=== PATIENT | female | born 1985 | race Caucasian/White ===

== ENCOUNTER 2017-04-18 01:45 | Emergency (ER) | payer MEDICAID ==
[2017-04-18] MEDS ORDERED: Albuterol 8 GM Inhaler INH ONE (02:45)
[2017-04-18] MEDS ORDERED: Montelukast 10 MG Tab PO ONE (02:59)
[2017-04-18 03:31] VITALS: BP 118/65
--- NOTE | 2017-04-20 15:34 | ER ---
DATE SEEN: 04/18/2017 HISTORY OF PRESENT ILLNESS: She states her asthma and her breathing improves when she takes her methamphetamine, but when she does not take it, it gets worse. She has smoked for 10 plus years a pack a day. For the last 6 months, she notes she has marked congestion when she comes off her methamphetamine. She is going to schedule to go to rehab within the next 2 weeks. She relapsed 2 days ago "Used methamphetamine because she got more short of breath." She denies fevers, but she has mild right neck discomfort. She uses asthma medicines, is out of those medicines. She complains of 2 days of right jaw, throat, and neck discomfort. She admits she has used methamphetamine, the last time she used methamphetamine was this morning. She denies previous otitis media or PE tube placement. She has 2 children. ALLERGIES: None. MEDICATIONS: None. She has not seen a doctor for many years. REVIEW OF SYSTEMS: Negative. HEENT: Denies headache, neck stiffness, compromised vision. She does not have any runny nose presently or nasal congestion presently, but she says it is difficult for her to breathe. She notes she has whistling in her lungs. CARDIORESPIRATORY: Denies chest pain. She has some wheezing. Denies air hunger, dyspnea on exertion, or orthopnea. ABDOMEN: Denies abdominal discomfort, diarrhea, constipation, blood in the stool, or black tarry stools. : She is 2, para 2-0-0-2. Denies pelvic pain. MUSCULOSKELETAL: Denies muscle aches, myalgia, skin changes, thyroid problems, feeling too hot or too cold. OBJECTIVE EXAMINATION: VITAL SIGNS: Heart rate 104, respirations 18, oxygen saturation 100% on room air, respiratory rate 18, temperature is 36.9 degrees centigrade. HEENT: Pupils, she has fixed dilated pupils, not responsive to light when I turn light on or off or even if I shine light in her eyes, which suggests she also has had methamphetamine use today, which she acknowledged she used this morning. PERRLA intact. Pharynx without abnormality. No nasal congestion. No nasal turbinate swelling. No polyps. She has mild eustachian tube dysfunction in right ear. No fluid demonstrated, but not obscuring the TMs. No cervical adenopathy. NECK: Supple. No pharyngeal erythema. No tonsillar hypertrophy or exudative tonsillitis. LUNGS: Have moderate low pitch wheezing inspiratory and expiratory. HEART: S1 and S2. No murmur. ABDOMEN: Soft. No guarding. No abdominal discomfort. EXTREMITIES: Without abnormality. DERMIS: Negative. Deep tendon reflexes increased, upper and lower extremities. Cranial nerves II through XII intact. Gait intact. No tremor. No paresis. ASSESSMENT: 1. The patient is definitely a drug addict. 2. She has used methamphetamines and that is apparent. The patient has some pupil dilation with pseudo cholinergic effect. 3. Neck pain and ear pain and throat pain. Could have a viral involvement. No evidence for strep. Strep test is negative. 4. Eustachian tube discomfort is causing right ear discomfort. She was taught the Toynbee maneuver and also advised to use Sudafed [id number]. She then can use Tylenol or ibuprofen for neck pain and aches and sore throat. I did not prescribe any medicines or antibiotics. The patient to followup with doctor in a week. The patient was seen at 0210 hours. DIAGNOSES: 1. Methamphetamine abuse. 2. Congestion secondary to methamphetamine use. 3. Mistaken notion that methamphetamine decreases her wheezing. She is a smoker and the wheezing is bad. 4. She has lung disease which mirrors the smoking abuse she has and has inspiratory and expiratory wheezing. 5. Asthma. Plan: Advair Diskus 250/100 one puff each twice a day, also Pulmicort (ICS medicine) inhale one puff b.i.d. 6. Eustachian tube dysfunction secondary to methamphetamine use and probably viremia. 7. Smoking abuse. 8. I told the patient her lungs are older than her age, perhaps 10 years older or more because of the abuse she has experienced, and she has to make a decision if she wants to be an old woman at an early age 47 and carry on the way she is with her methamphetamine use and smoking, or decide to make a decision about changing her habits and smoking. 9. Also additional comment: She has moderate lacrimation and sort of injection in her eyes reflects current use, perhaps even she used methamphetamine earlier this evening before she even came to the ED. /[id number] TIMOTHY/HIEU LLANOS
== END 2017-04-18 03:25 | disposition home or self-care (01) ==
LOC: FB.ED 01:45
DX: M54.2 Cervicalgia (principal); H69.91 Unspecified Eustachian tube disorder, right ear; R07.0 Pain in throat; F15.10 Other stimulant abuse, uncomplicated; J45.909 Unspecified asthma, uncomplicated; F17.200 Nicotine dependence, unspecified, uncomplicated
CPT/HCPCS: 87081; 87430; 99283; A9270

== ENCOUNTER 2018-08-18 13:05 | Emergency (ER) | payer MEDICAID ==
--- NOTE | 2018-08-18 13:19 | EDM.PDOC ---
ED HPI GENERAL MEDICAL PROBLEM - General Stated Complaint: BROUGHT IN Time Seen by Provider: 08/18/18 13:05 Source of Information: Reports: Patient, Police History Limitations: Reports: No Limitations - History of Present Illness INITIAL COMMENTS - FREE TEXT/NARRATIVE: 33 years old w f -smoker-H/O asthma, came to the ed after she was put in custody. Pt stated she took 2 gm of meth. Pt has 2 children, is . On arrival, pt was calm, cooperative. She was coughing up occ greenish sputum. NoN/ V/D or any other acute medical issue. BP 130/71 RR 19 Pulse ox 99% on RA Temp 36.8 Pulse 81 Onset Date: 08/18/18 Onset Time: 10:00 Duration: Hour(s): Location: Reports: Generalized Severity: Mild Improves with: Reports: None Worsens with: Reports: None Context: Reports: Other (amphetamin use) Associated Symptoms: Reports: No Other Symptoms, Other (productive cough) - Related Data Allergies Allergy/AdvReac Type Severity Reaction Status Date / Time No Known Allergies Allergy Verified 08/18/18 15:38 Home Meds: Home Meds Budesonide [Pulmicort Flexhaler] 1 inhalation INH BID PRN #1 inhaler 04/18/17 [ Rx] Fluticasone/Salmeterol [Advair 250-50 Diskus] 1 each IH BID #1 disk.w.dev [Rx] Albuterol [Proventil HFA] 2 puff INH Q4H PRN #1 inhaler 08/18/18 [Rx] Budesonide/Formoterol Fumarate [Symbicort 160-4.5 Mcg Inhaler] 1 puff IH Q4HR # 1 canister 08/18/18 [Rx] Ciprofloxacin HCl [Cipro] 500 mg PO BID #20 tablet 08/18/18 [Rx] Fluconazole [Diflucan] 200 mg PO ONETIME #1 tablet 08/18/18 [Rx] Albuterol [Proventil HFA] 2 puff INH Q4H PRN #1 inhaler 08/20/18 [Rx] Budesonide/Formoterol Fumarate [Symbicort 160-4.5 Mcg Inhaler] 1 puff IH BID PRN #1 canister 08/20/18 [Rx] Ciprofloxacin HCl [Cipro] 500 mg PO BID #20 tablet 08/20/18 [Rx] Fluconazole [Diflucan] 200 mg PO ONETIME #1 tablet 08/20/18 [Rx] Past Medical History Respiratory History: Reports: Asthma Gastrointestinal History: Reports: None Genitourinary History: Reports: None 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: Musculoskeletal History: Reports: Back Pain, Chronic, Other (See Below) Other Musculoskeletal History: djd Psychiatric History: Reports: ADD, Addiction, Anxiety, Depression, Panic Attack , Other (See Below) Other Psychiatric History: borderline personality disorder, self harm Dermatologic History: Reports: Other (See Below) Other Dermatologic History: cystic acne - Infectious Disease History Infectious Disease History: Reports: Chicken Pox - Past Surgical History HEENT Surgical History: Reports: Oral Surgery Respiratory Surgical History: Reports: None GI Surgical History: Reports: Appendectomy Female Surgical History: Reports: Tubal Ligation Social & Family History - Caffeine Use Caffeine Use: Reports: Coffee, Tea ED ROS GENERAL - Review of Systems Review Of Systems: See Below Constitutional: Reports: No Symptoms HEENT: Reports: No Symptoms Respiratory: Reports: Cough, Sputum Cardiovascular: Reports: No Symptoms Endocrine: Reports: No Symptoms GI/Abdominal: Reports: No Symptoms : Reports: No Symptoms Musculoskeletal: Reports: No Symptoms Skin: Reports: No Symptoms Neurological: Reports: No Symptoms Psychiatric: Reports: No Symptoms Hematologic/Lymphatic: Reports: No Symptoms Immunologic: Reports: No Symptoms ED EXAM, GENERAL - Physical Exam Exam: See Below Exam Limited By: No Limitations General Appearance: Alert, WD/WN, Mild Distress Eye Exam: Bilateral Eye: Normal Inspection Ears: Normal External Exam Ear Exam: Bilateral Ear: Auricle Normal Nose: Normal Inspection, Normal Mucosa, No Blood Throat/Mouth: Normal Inspection, Normal Lips, Normal Voice, No Airway Compromise Head: Atraumatic, Normocephalic Neck: Normal Inspection, Supple, Non-Tender, Full Range of Motion Respiratory/Chest: No Respiratory Distress, Rhonchi Cardiovascular: Normal Peripheral Pulses, Regular Rate, Rhythm, No Edema, No Gallop, No JVD, No Murmur, No Rub Peripheral Pulses: 2+: Brachial (R) GI/Abdominal: Normal Bowel Sounds, Soft, Non-Tender, No Organomegaly, No Distention, No Abnormal Bruit, No Mass, Pelvis Stable (Female) Exam: Deferred Rectal (Female) Exam: Deferred Back Exam: Normal Inspection, Full Range of Motion Extremities: Normal Inspection, Normal Range of Motion, Non-Tender, No Pedal Edema, Normal Capillary Refill Neurological: Alert, Oriented, CN II-XII Intact, Normal Cognition, Normal Gait, No Motor/Sensory Deficits Psychiatric: Anxious Skin Exam: Warm, Dry, Intact, Normal Color, No Rash Lymphatic: No Adenopathy EKG INTERPRETATION EKG Date: 08/18/18 Time: 14:10 Rhythm: NSR Rate (Beats/Min): 97 Dieterich: Normal P-Wave: Present QRS: Normal ST-T: Normal QT: Normal Comparison: NA - No Prior EKG Course - Vital Signs Text/Narrative:: 33 years old w f -smoker-H/O asthma, came to the ed after she was put in custody. Pt stated she took 2 gm of meth. Pt has 2 children, is . On arrival, pt was calm, cooperative. She was coughing up occ greenish sputum. NoN/ V/D or any other acute medical issue. BP 130/71 RR 19 Pulse ox 99% on RA Temp 36.8 Pulse 81 PE: WNWD WF in SID Labs: Pos for meth and marijuana Imaging: CXR NAD Impression: Amphetamin and Marijuana abuse, in custody, acute bronchitis Tx: cipro, Prescriptions for: Albuterol cipro, Symbicourt, Diflucan Reexam: improved Plan: D/C with instruction with the police addendum 08/20/2018: Pt called, sating she lost her prescriptions of cipro and Inhalers. Will send a new prescription per email today Daisha Vega Last Recorded V/S: Last Vital Signs Temp 36.2 C 08/18/18 13:05 Pulse 103 H 08/18/18 13:05 Resp 20 08/18/18 13:05 BP 130/71 08/18/18 13:05 Pulse Ox 99 08/18/18 13:05 - Orders/Labs/Meds Labs: Laboratory Tests 08/18/18 08/18/18 08/18/18 Range/Units 13:30 13:30 13:45 WBC (4.5-12.0) X10-3/uL RBC (3.23-5.20) x10(6)uL Hgb (11.5-15.5) g/dL Hct (30.0-51.3) % MCV (80-96) fL MCH (27.7-33.6) pg MCHC (32.2-35.4) g/dL RDW (11.5-15.5) % Plt Count (125-369) X10(3)uL MPV (7.4-10.4) fL Neut % (Auto) (46-82) % Lymph % (Auto) (13-37) % [place] % (Auto) (4-12) % Eos % (Auto) (1.0-5.0) % Baso % (Auto) (0-2) % Neut # (Auto) (1.6-8.3) # Lymph # (Auto) (0.6-5.0) # [place] # (Auto) (0.0-1.3) # Eos # (Auto) (0.0-0.8) # Baso # (Auto) (0.0-0.2) # Sodium (135-145) mmol/L Potassium (3.5-5.3) mmol/L Chloride (100-110) mmol/L Carbon Dioxide (21-32) mmol/L BUN (7-18) mg/dL Creatinine (0.55-1.02) mg/dL Est Cr Clr Drug Dosing Estimated GFR (MDRD) (>60) BUN/Creatinine Ratio (9-20) Glucose (80-116) mg/dL Calcium (8.6-10.2) mg/dL Creatine Kinase (60-160) IU/L Troponin I < 0.017 L (<0.017-0.056) ng/mL TSH, Ultra Sensitive (0.36-3.74) IU/mL Urine HCG, Qual Negative (NEGATIVE) Salicylates (2.8-20.0) mg/dL Urine Opiates Screen Negative (NEGATIVE) Ur Oxycodone Screen Negative (NEGATIVE) Ur Propoxyphene Screen Negative (NEGATIVE) Acetaminophen (10-30) ug/mL Ur Barbituates Screen Negative (NEGATIVE) Ur Tricyclics Screen Negative (NEGATIVE) Ur Phencyclidine Scrn Negative (NEGATIVE) Ur Amphetamine Screen Positive H (NEGATIVE) Urine MDMA Screen Positive H (NEGATIVE) U Benzodiazepines Scrn Negative (NEGATIVE) U Cocaine Metab Screen Negative (NEGATIVE) U Marijuana (THC) Screen Positive H (NEGATIVE) 08/18/18 08/18/18 08/18/18 Range/Units 13:45 13:50 13:50 WBC 9.2 (4.5-12.0) X10-3/uL RBC 5.04 (3.23-5.20) x10(6)uL Hgb 15.7 H (11.5-15.5) g/dL Hct 46.8 (30.0-51.3) % MCV 92.9 (80-96) fL MCH 31.1 (27.7-33.6) pg MCHC 33.5 (32.2-35.4) g/dL RDW 12.1 (11.5-15.5) % Plt Count 360 (125-369) X10(3)uL MPV 7.9 (7.4-10.4) fL Neut % (Auto) 72.1 (46-82) % Lymph % (Auto) 19.4 (13-37) % [place] % (Auto) 4.8 (4-12) % Eos % (Auto) 3 (1.0-5.0) % Baso % (Auto) 1 (0-2) % Neut # (Auto) 6.6 (1.6-8.3) # Lymph # (Auto) 1.8 (0.6-5.0) # [place] # (Auto) 0.4 (0.0-1.3) # Eos # (Auto) 0.3 (0.0-0.8) # Baso # (Auto) 0.1 (0.0-0.2) # Sodium 138 (135-145) mmol/L Potassium 3.6 (3.5-5.3) mmol/L Chloride 100 (100-110) mmol/L Carbon Dioxide 30 (21-32) mmol/L BUN 12 (7-18) mg/dL Creatinine 0.8 (0.55-1.02) mg/dL Est Cr Clr Drug Dosing TNP Estimated GFR (MDRD) > 60 (>60) BUN/Creatinine Ratio 15.0 (9-20) Glucose 84 (80-116) mg/dL Calcium 9.0 (8.6-10.2) mg/dL Creatine Kinase 93 (60-160) IU/L Troponin I (<0.017-0.056) ng/mL TSH, Ultra Sensitive (0.36-3.74) IU/mL Urine HCG, Qual (NEGATIVE) Salicylates 2.4 L (2.8-20.0) mg/dL Urine Opiates Screen (NEGATIVE) Ur Oxycodone Screen (NEGATIVE) Ur Propoxyphene Screen (NEGATIVE) Acetaminophen < 2 L (10-30) ug/mL Ur Barbituates Screen (NEGATIVE) Ur Tricyclics Screen (NEGATIVE) Ur Phencyclidine Scrn (NEGATIVE) Ur Amphetamine Screen (NEGATIVE) Urine MDMA Screen (NEGATIVE) U Benzodiazepines Scrn (NEGATIVE) U Cocaine Metab Screen (NEGATIVE) U Marijuana (THC) Screen (NEGATIVE) 08/18/18 Range/Units 13:50 WBC (4.5-12.0) X10-3/uL RBC (3.23-5.20) x10(6)uL Hgb (11.5-15.5) g/dL Hct (30.0-51.3) % MCV (80-96) fL MCH (27.7-33.6) pg MCHC (32.2-35.4) g/dL RDW (11.5-15.5) % Plt Count (125-369) X10(3)uL MPV (7.4-10.4) fL Neut % (Auto) (46-82) % Lymph % (Auto) (13-37) % [place] % (Auto) (4-12) % Eos % (Auto) (1.0-5.0) % Baso % (Auto) (0-2) % Neut # (Auto) (1.6-8.3) # Lymph # (Auto) (0.6-5.0) # [place] # (Auto) (0.0-1.3) # Eos # (Auto) (0.0-0.8) # Baso # (Auto) (0.0-0.2) # Sodium (135-145) mmol/L Potassium (3.5-5.3) mmol/L Chloride (100-110) mmol/L Carbon Dioxide (21-32) mmol/L BUN (7-18) mg/dL Creatinine (0.55-1.02) mg/dL Est Cr Clr Drug Dosing Estimated GFR (MDRD) (>60) BUN/Creatinine Ratio (9-20) Glucose (80-116) mg/dL Calcium (8.6-10.2) mg/dL Creatine Kinase (60-160) IU/L Troponin I (<0.017-0.056) ng/mL TSH, Ultra Sensitive 1.19 (0.36-3.74) IU/mL Urine HCG, Qual (NEGATIVE) Salicylates (2.8-20.0) mg/dL Urine Opiates Screen (NEGATIVE) Ur Oxycodone Screen (NEGATIVE) Ur Propoxyphene Screen (NEGATIVE) Acetaminophen (10-30) ug/mL Ur Barbituates Screen (NEGATIVE) Ur Tricyclics Screen (NEGATIVE) Ur Phencyclidine Scrn (NEGATIVE) Ur Amphetamine Screen (NEGATIVE) Urine MDMA Screen (NEGATIVE) U Benzodiazepines Scrn (NEGATIVE) U Cocaine Metab Screen (NEGATIVE) U Marijuana (THC) Screen (NEGATIVE) Meds: Medications Discontinued Medications Generic Name Dose Route Start Last Admin Trade Name Freq PRN Reason Stop Dose Admin Sodium Chloride 1,000 mls @ 999 mls/hr 08/18/18 14:20 08/18/18 14:20 Normal Saline IV 08/18/18 15:20 999 mls/hr .BOLUS ONE Administration Lorazepam 0.5 mg 08/18/18 15:35 08/18/18 15:43 Ativan PO 08/18/18 15:36 0.5 mg ONETIME ONE Administration Departure - Departure Time of Disposition: 15:59 Disposition: Home, Self-Care 01 Condition: Good Clinical Impression: Amphetamine abuse, Marijuana abuse, Smoker, Bronchitis - Discharge Information Prescriptions: Budesonide/Formoterol Fumarate [Symbicort 160-4.5 Mcg Inhaler] 1 puff IH Q4HR # 1 canister Albuterol [Proventil HFA] 2 puff INH Q4H PRN #1 inhaler PRN Reason: sob Albuterol [Proventil HFA] 2 puff INH Q4H PRN #1 inhaler PRN Reason: sob Budesonide/Formoterol Fumarate [Symbicort 160-4.5 Mcg Inhaler] 1 puff IH BID PRN #1 canister PRN Reason: sob Ciprofloxacin HCl [Cipro] 500 mg PO BID #20 tablet Ciprofloxacin HCl [Cipro] 500 mg PO BID #20 tablet Fluconazole [Diflucan] 200 mg PO ONETIME #1 tablet Fluconazole [Diflucan] 200 mg PO ONETIME #1 tablet Instructions: Drug Overdose, Finding Treatment for Addiction, Acute Bronchitis , Adult Referrals: Anton Salmeron MD [Primary Care Provider] - Forms: ED Department Discharge Additional Instructions: Please use your inhalers as recommended. Cipro as recommended. NO DRUGS PLEASE. Please F/U with your PMD, please come back if your symptoms get worse acutely
[2018-08-18] MEDS ORDERED: Sodium Chloride 0.9% 1,000 ML IV ONE (14:20)
[2018-08-18 14:42] LABS: ACETAMINOPHEN < 2 ug/mL (10-30)
[2018-08-18 15:09] VITALS: BP 130/71
[2018-08-18] MEDS ORDERED: LORazepam 0.5 MG Tab PO ONE (15:35)
== END 2018-08-18 17:00 | disposition home or self-care (01) ==
LOC: FB.ED 13:05
DX: J20.9 Acute bronchitis, unspecified (principal); F15.10 Other stimulant abuse, uncomplicated; F17.200 Nicotine dependence, unspecified, uncomplicated; F12.10 Cannabis abuse, uncomplicated
CPT/HCPCS: 36415; 71046; 80048; 80305; 81025; 82550; 84443; 84484; 85025; 93005; 96360; 99284; A9270; G0480; J7030

== ENCOUNTER 2020-01-20 09:23 | Emergency (ER) | payer MEDICAID ==
[2020-01-20] MEDS: Albuterol/Ipratropium 3.0-0.5 MG/3 ML Neb Soln NEB ONE (09:25)
[2020-01-20] MEDS: Albuterol 0.083% 2.5 MG/3 ML Neb Soln NEB ONE (09:25)
--- NOTE | 2020-01-20 09:25 | EDM.PDOC ---
ED HPI GENERAL MEDICAL PROBLEM - General Stated Complaint: ASTHMA ATTACK Time Seen by Provider: 01/20/20 09:23 Source of Information: Reports: Patient History Limitations: Reports: No Limitations - History of Present Illness INITIAL COMMENTS - FREE TEXT/NARRATIVE: 34-year-old female with history of asthma and reports that her breathing "is not good any time" who reports that she awoke at 8 AM after sleeping in a shop on a friend's couch and was having significant trouble breathing and wheezing and "could not breathe". She has no insurance and has not been able to afford her inhalers and has been out of an albuterol inhaler for quite some time. She denies any pain. She rates her pain as a 0/10. She does report that she has been having a cough with production of which varies from black to white to yellow but she reports that she has this pretty much all the time and it is not different from previous. She denies any nasal congestion. There is been no nausea or vomiting. No fevers or chills. No known exposure to anyone with COVID- 19. She has been eating and drinking normally. She presents via private vehicle. There are no other associated signs or symptoms. There are no other modifying factors. Onset: Today (ADM) Duration: Constant Location: Reports: Other (No pain) Quality: Reports: Other (Not applicable) Severity: Severe (Her difficulty breathing is severe.) Improves with: Reports: None Worsens with: Reports: Other (It is worse with activity.) Context: Reports: Other (As above.) Associated Symptoms: Reports: Cough, Shortness of Breath Treatments PRO[employer]OL OFFICER: Reports: Other (see below) (Nothing) - Related Data Allergies Allergy/AdvReac Type Severity Reaction Status Date / Time No Known Allergies Allergy Verified 01/20/20 09:33 Home Meds: Home Meds Budesonide [Pulmicort Flexhaler] 1 inhalation INH BID PRN #1 inhaler 04/18/17 [ Rx] Fluticasone Propion/Salmeterol [Advair 250-50 Diskus] 1 each IH BID #1 disk.w.dev 04/18/17 [Rx] Albuterol [Proventil HFA] 2 puff INH Q4H PRN #1 inhaler 08/18/18 [Rx] Budesonide/Formoterol Fumarate [Symbicort 160-4.5 Mcg Inhaler] 1 puff IH Q4HR # 1 canister 08/18/18 [Rx] Ciprofloxacin HCl [Cipro] 500 mg PO BID #20 tablet 08/18/18 [Rx] Fluconazole [Diflucan] 200 mg PO ONETIME #1 tablet 08/18/18 [Rx] Albuterol [Proventil HFA] 2 puff INH Q4H PRN #1 inhaler 08/20/18 [Rx] Budesonide/Formoterol Fumarate [Symbicort 160-4.5 Mcg Inhaler] 1 puff IH BID PRN #1 canister 08/20/18 [Rx] Ciprofloxacin HCl [Cipro] 500 mg PO BID #20 tablet 08/20/18 [Rx] Fluconazole [Diflucan] 200 mg PO ONETIME #1 tablet 08/20/18 [Rx] Doxycycline [Vibra-Tabs] 100 mg PO BID 7 Days #14 tablet 01/20/20 [Rx] predniSONE [Prednisone] 60 mg PO DAILY 5 Days #15 tablet 01/20/20 [Rx] Past Medical History Respiratory History: Reports: Asthma Musculoskeletal History: Reports: Back Pain, Chronic, Other (See Below) Other Musculoskeletal History: djd Psychiatric History: Reports: ADD, Addiction, Anxiety, Depression, Panic Attack , Other (See Below) Other Psychiatric History: borderline personality disorder, self harm Dermatologic History: Reports: Other (See Below) Other Dermatologic History: cystic acne - Infectious Disease History Infectious Disease History: Reports: Chicken Pox - Past Surgical History HEENT Surgical History: Reports: Oral Surgery ([place] teeth extraction) GI Surgical History: Reports: Appendectomy Female Surgical History: Reports: Tubal Ligation Social & Family History - Tobacco Use Smoking Status *Q: Current Every Day Smoker - Caffeine Use Caffeine Use: Reports: Coffee, Tea - Alcohol Use Alcohol Use History: No - Recreational Drug Use Recreational Drug Use: Yes Recreational Drug Type: Reports: Marijuana/Hashish, Methamphetamine (Smokes.) Recreational Drug Use Frequency: Weekly - Living Situation & Occupation Occupation: Unemployed Social History Comment: Homeless. ED ROS GENERAL - Review of Systems Review Of Systems: See Below Constitutional: Reports: No Symptoms HEENT: Reports: No Symptoms Respiratory: Reports: Shortness of Breath, Wheezing Cardiovascular: Reports: No Symptoms GI/Abdominal: Reports: No Symptoms : Reports: No Symptoms Musculoskeletal: Reports: No Symptoms Skin: Reports: No Symptoms Neurological: Reports: No Symptoms Psychiatric: Reports: Anxiety Hematologic/Lymphatic: Reports: No Symptoms Immunologic: Reports: No Symptoms ED EXAM, GENERAL - Physical Exam Exam: See Below Exam Limited By: No Limitations General Appearance: Alert, WD/WN, Moderate Distress (Respiratory distress with hyperventilation. Audible wheezes across the room) Eye Exam: Bilateral Eye: EOMI, Normal Inspection Ears: Normal External Exam, Hearing Grossly Normal Ear Exam: Bilateral Ear: Auricle Normal Nose: Normal Inspection, Normal Mucosa, No Blood Throat/Mouth: Normal Inspection, Normal Oropharynx, Normal Voice, No Airway Compromise Head: Atraumatic, Normocephalic Neck: Normal Inspection, Supple, Non-Tender, Full Range of Motion Respiratory/Chest: Chest Non-Tender, Respiratory Distress, Wheezing, Accessory Muscle Use, Prolonged Expiration Cardiovascular: Normal Peripheral Pulses, Regular Rate, Rhythm, No JVD, No Murmur Peripheral Pulses: 2+: Radial (L), Radial (R), Dorsalis Pedis (L), Dorsalis Pedis (R) GI/Abdominal: Normal Bowel Sounds, Soft, Non-Tender, No Mass Back Exam: Normal Inspection Extremities: Normal Inspection, Normal Range of Motion, Non-Tender, No Pedal Edema, Normal Capillary Refill Neurological: Alert, Oriented, CN II-XII Intact, Normal Cognition, No Motor/ Sensory Deficits Psychiatric: Anxious Skin Exam: Warm, Dry, Normal Color, Wound/Incision (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 There is no surrounding erythema and no evidence of cellulitis with these.) Course - Vital Signs Last Recorded V/S: Last Vital Signs Temp 36.0 C L 01/20/20 09:25 Pulse 110 H 01/20/20 11:18 Resp 19 01/20/20 11:18 BP 110/73 01/20/20 11:18 Pulse Ox 100 01/20/20 11:18 - Orders/Labs/Meds Orders: Active Orders 24 hr Category Date Time Status RT Aerosol Therapy [RC] ASDIRECTED Care 01/20/20 09:47 Active RT Post Treatment Assessment [RC] Click to Edit Care 01/20/20 10:14 Active Chest 1V Frontal [CR] Stat Exams 01/20/20 09:49 Taken Sodium Chloride 0.9% [Saline Flush] Med 01/20/20 09:44 Active 10 ml FLUSH ASDIRECTED PRN Peripheral IV Insertion Adult [OM.PC] Routine Oth 01/20/20 09:44 Ordered Medication Orders Sodium Chloride (Saline Flush) 10 ml FLUSH ASDIRECTED PRN PRN Reason: Keep Vein Open Last Admin: 01/20/20 09:26 Dose: 10 ml Labs: Laboratory Tests 01/20/20 Range/Units 10:33 SARS Virus RNA (PCR) Negative (NEGATIVE) Meds: Medications Generic Name Dose Route Start Last Admin Trade Name Freq PRN Reason Stop Dose Admin Sodium Chloride 10 ml 01/20/20 09:44 01/20/20 09:26 Saline Flush FLUSH 10 ml ASDIRECTED PRN Administration Keep Vein Open Discontinued Medications Generic Name Dose Route Start Last Admin Trade Name Freq PRN Reason Stop Dose Admin Albuterol 2.5 mg 01/20/20 09:23 01/20/20 09:25 Proventil Neb Soln NEB 01/20/20 09:24 2.5 mg ONETIME ONE Administration Albuterol 2 gm 01/20/20 10:14 01/20/20 10:25 Ventolin Hfa INH 01/20/20 10:15 2 puff ONETIME ONE Administration Albuterol/Ipratropium 3 ml 01/20/20 09:23 01/20/20 09:25 Duoneb 3.0-0.5 Mg/3 Ml NEB 01/20/20 09:24 3 ml ONETIME ONE Administration Methylprednisolone Sodium Succinate 125 mg 01/20/20 09:47 01/20/20 09:55 Solu-Medrol IVPUSH 01/20/20 09:48 125 mg ONETIME ONE Administration - Radiology Interpretation Free Text/Narrative:: Portal chest x-ray shows hyperinflation but no evidence of pneumonia or pneumothorax. - Re-Assessments/Exams Free Text/Narrative Re-Assessment/Exam: 01/20/20 10:12: Patient moving air much better. Her breathing pattern is much improved after the nebulizer treatment. She still has bilateral wheezing. I will give the patient albuterol inhaler, 2 puffs now. Chest x-ray and Covid 19 test is pending at this point. 01/20/20 10:52: Chest x-ray is normal. The Covid 19 test is pending. The patient feels that her breathing is back to baseline. She still has wheezing at she has no respiratory distress and her air movement is improved. She does not want to wait for the Covid 19 test come back. She is requesting discharge at this point. We will give her the remainder of the albuterol inhaler with spacer use as needed. I will also place the patient on doxycycline for 7 day course and prednisone for the next 5 days. 01/20/20 11:40: Patient did wait for the Covid 19 test to come back. It was negative. She was resting comfortably and in no acute distress at discharge. Departure - Departure Time of Disposition: 11:40 Disposition: Home, Self-Care 01 Condition: Good (Improved) Clinical Impression: Acute exacerbation of extrinsic asthma, Bronchitis - Discharge Information Prescriptions: Doxycycline [Vibra-Tabs] 100 mg PO BID 7 Days #14 tablet predniSONE [Prednisone] 60 mg PO DAILY 5 Days #15 tablet Instructions: How to Use a Metered Dose Inhaler, Asthma, Adult, [id number], Asthma Attack Referrals: PCP,None [Primary Care Provider] - Forms: ED Department Discharge Additional Instructions: Your chest x-ray no evidence of pneumonia. Your COVID-19 test was pending at discharge. He responded well to the nebulizer treatment and to the albuterol inhaler. I strongly advise you to stop smoking cigarettes and to stop using methamphetamines. Increase your fluid intake. Use the albuterol inhaler with the spacer, 2 puffs or hours as needed for wheezing or shortness of breath. Medication as prescribed (doxycycline 100 mg, prednisone). Back to the emergency department for worse breathing, unrelenting vomiting or any other concerning sign or symptom. Sepsis Event Note (ED) - Focused Exam Vital Signs: Vital Signs Temp Pulse Resp BP Pulse Ox 01/20/20 11:18 110 H 19 110/73 100 01/20/20 10:59 77 17 113/71 100 01/20/20 10:47 76 18 113/71 100 01/20/20 10:40 70 16 100/62 100 01/20/20 09:25 36.0 C L 84 24 H 113/76 94 L - My Orders Last 24 Hours: My Active Orders 01/20/20 09:44 Sodium Chloride 0.9% [Saline Flush] 10 ml FLUSH ASDIRECTED PRN Peripheral IV Insertion Adult [OM.PC] Routine 01/20/20 09:47 RT Aerosol Therapy [RC] ASDIRECTED 01/20/20 09:49 Chest 1V Frontal [CR] Stat 01/20/20 10:14 RT Post Treatment Assessment [RC] Click to Edit - Assessment/Plan Last 24 Hours: My Active Orders 01/20/20 09:44 Sodium Chloride 0.9% [Saline Flush] 10 ml FLUSH ASDIRECTED PRN Peripheral IV Insertion Adult [OM.PC] Routine 01/20/20 09:47 RT Aerosol Therapy [RC] ASDIRECTED 01/20/20 09:49 Chest 1V Frontal [CR] Stat 01/20/20 10:14 RT Post Treatment Assessment [RC] Click to Edit
[2020-01-20] MEDS: Sodium Chloride 0.9% 10 ML Syringe FLUSH PRN (09:26)
[2020-01-20] MEDS: methylPREDNISolone Sodium Succinate 125 MG/2 ML SDV IVPUSH ONE (09:55)
[2020-01-20] MEDS: Albuterol 8 GM Inhaler INH ONE (10:25)
[2020-01-20 11:19] VITALS: BP 110/73; PULSE 110
--- NOTE | 2020-01-22 18:57 | CR ---
INDICATION: Asthma attacks. Coughing up phlegm. CHEST, ONE VIEW: An AP upright portable view of the chest 01/20/20 was compared with 08/18/18, again revealing the heart and mediastinum to be unremarkable with a mild dextroconcave scoliosis at the lower thoracic spine. A definite active infiltrate or effusion was not identified. IMPRESSION: No acute process. MTDD
== END 2020-01-20 11:47 | disposition home or self-care (01) ==
LOC: FB.ED 09:23
DX: J45.901 Unspecified asthma with (acute) exacerbation (principal); F17.200 Nicotine dependence, unspecified, uncomplicated
CPT/HCPCS: 71045; 94640; 96374; 99285-25; A9270-GY; J2930; J7620-GY; U0002